=== PATIENT | male | born 1940 | race Caucasian/White ===

== ENCOUNTER 2018-04-23 09:18 | Day surgery (SDC) | payer MEDICARE, OTHER ==
[2018-04-23 10:59] LABS: POTASSIUM 5.2 mmol/L (3.5-5.1)
[2018-04-23] MEDS ORDERED: FENTAnyl 50 MCG/ML VIAL (11:23)
[2018-04-23] MEDS ORDERED: PROPOFOL 40 ML (11:23)
[2018-04-23] MEDS ORDERED: LIDOCAINE 100 MG SYRINGE (11:23)
== END 2018-04-23 18:21 | disposition home or self-care (01) ==
LOC: GIL 09:18
DX: R19.4 Change in bowel habit (principal); K64.8 Other hemorrhoids; E11.9 Type 2 diabetes mellitus without complications; I12.0 Hypertensive chronic kidney disease with stage 5 chronic kidney disease or end stage renal disease; N18.6 End stage renal disease; Z99.2 Dependence on renal dialysis
CPT/HCPCS: 45378; 82962; 84132